=== PATIENT | male | born 1960 | race Caucasian/White ===

== ENCOUNTER → 2024-03-08 18:30 | Outpatient (REF) | payer MEDICARE, SELFPAY | LOC: PAVMRI 18:30 | PROVIDERS: ATTENDING PHYSICIAN Student in an Organized Health Care Education/Training Program; FAMILY PHYSICIAN Family Medicine; REFERRING PHYSICIAN Orthopaedic Surgery Orthopaedic Surgery of the Spine | DX: M25.559 Pain in unspecified hip (principal) | CPT/HCPCS: 72148 ==

== ENCOUNTER 2024-05-10 08:50 | Inpatient (IN) | payer MEDICARE, SELFPAY ==
--- NOTE | 2024-04-27 09:31 | CM ---
Patient is scheduled for lumbar spine surgery on 05/10/24. Spoke with patient prior to surgery via telephone. Introduced role of the Orthopedic Navigator. Patient reports that he lives with his in a two story home. There are seven steps to enter
and a flight of steps to the second floor. There is a powder room on the first floor. He currently functions independently. He has no DME and has never had VN services. PCP is Jeanmarie Tracy.
Discussed orthopedic program, post surgical plans and tentative plan for patient to return home when directed by surgeon. Patient is in agreement with tentative plan and will have support from his when he goes home.
Plan: Orthopedic Navigator will remain available to assist with the care of patient and will reassess discharge needs after surgery.
[2024-04-28 09:39] VITALS: BMI 31.2
[2024-04-28 09:58] LABS: Hematocrit 43.1 % (39.0-52.0); Mean Corp Hgb Conc. 34.8 g/dL (33.0-37.0); Mean Corpuscular Hgb 29.9 pg (27.0-31.0); Mean Corpuscular Volume 85.9 fL (80.0-94.0); Mean Platelet Volume 9.9 fL (7.4-10.4); Platelet Count 263 10^3/uL (130-400); Red Blood Cell Count 5.02 10^6/uL (4.70-6.10); Red Cell Dist. Width 12.7 % (11.5-14.5); White Blood Cell Count 6.7 10^3/uL (4.8-10.8)
[2024-04-28 10:22] LABS: ALT (SGPT) 40 U/L (0-50); AST (SGOT) 28 U/L (17-59); Albumin 5.1 g/dl (3.5-5.0); Alkaline Phosphatase 51 U/L (38-126); Blood Urea Nitrogen 21 mg/dl (9-20); Calcium 9.9 mg/dl (8.4-10.2); Carbon Dioxide 24 mmol/L (22-30); Chloride 105 mmol/L (98-107); Estimated Creatinine Clearance 89 ml/min; Glucose 123 mg/dl (70-99); Potassium 4.5 mmol/L (3.5-5.1); Sodium 139 mmol/L (135-145); Total Bilirubin 0.9 mg/dl (0.2-1.3); eGFR > 60.00
[2024-05-10] VITALS (18 sets, daily range): BP systolic 70–171; BP diastolic 70–115; PULSE 88; O2SAT 94; BMI 30.7; BMI 31.2
[2024-05-10] MEDS: LYRICA 150 MG PO (09:13)
[2024-05-10] MEDS: SKELAXIN 800 MG PO ×2 (09:13→14:54)
[2024-05-10] MEDS: TYLENOL 1000 MG PO ×3 (09:13→22:45)
[2024-05-10] MEDS: CELEBREX 200 MG PO (09:14)
[2024-05-10] MEDS: VANCOCIN 300 MG IV (09:16)
[2024-05-10] MEDS: VANCOCIN 300 ML IV (09:16)
[2024-05-10 09:17] LABS: Glucose - Point of Care 139 mg/dl (70-99)
[2024-05-10] MEDS: NORMOSOL-R 1000 IV ×2 (09:17→14:46)
[2024-05-10] MEDS: DILAUDID 0.5 MG IV (13:06)
[2024-05-10] MEDS: ULTRAM 50 MG PO ×4 (14:54→22:45)
[2024-05-10] MEDS: CRESTOR PO (15:00)
[2024-05-10] MEDS: CRESTOR 20 MG PO (15:00)
[2024-05-10] MEDS: COMPAZINE 5 MG IV (15:37)
[2024-05-10] MEDS: ANCEF 5 IV (18:25)
[2024-05-10] MEDS: COLACE 100 MG PO (19:54)
[2024-05-10] MEDS: SENOKOT 17.2 MG PO (19:54)
[2024-05-10] MEDS: LYRICA 75 MG PO (19:54)
[2024-05-11] MEDS: NORMOSOL-R 1000 IV (00:41)
[2024-05-11] MEDS: ANCEF 5 IV (02:40)
[2024-05-11] MEDS: ULTRAM 50 MG PO ×2 (02:40→06:24)
[2024-05-11 03:40] VITALS: BP 128/69
[2024-05-11] MEDS: TYLENOL 1000 MG PO ×2 (05:05→09:00)
[2024-05-11 06:52] LABS: Blood Urea Nitrogen 18 mg/dl (9-20); Calcium 8.3 mg/dl (8.4-10.2); Carbon Dioxide 23 mmol/L (22-30); Chloride 104 mmol/L (98-107); Estimated Creatinine Clearance 111 ml/min; Glucose 160 mg/dl (70-99); Potassium 4.1 mmol/L (3.5-5.1); Sodium 136 mmol/L (135-145); eGFR > 60.00
[2024-05-11 07:35] VITALS: BP 135/73
--- NOTE | 2024-05-11 07:57 | W.DS.TRANS ---
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
-
Discharge Instructions:
Sleep Apnea Risk Intermediate
Instructions:
Stand-Alone Forms: [facility].
Changes to Home Medications: No
Discharge Medications:
DC Medications w/original date entered in [facility]
benazepril 20 mg tablet 40 mg PO DAILY Blood Pressure 12/06/19
acetaminophen 650 mg tablet,extended release 1,300 mg PO BID Pain 05/03/24
amlodipine 5 mg tablet 5 mg PO HS Blood Pressure 05/03/24
meloxicam 15 mg tablet 15 mg PO DAILY 05/03/24
rosuvastatin 20 mg tablet 20 mg PO DAILY High Cholesterol 05/03/24
aspirin 81 mg tablet,delayed release 81 mg PO DAILY Blood Clot Prevention/Tx 05/11/24
Home Medication Changes
Pending Results: No
--- NOTE | 2024-05-11 07:57 | W.PN.SP ---
Addendum entered and electronically signed by Jose Dickinson MD 05/11/24 08:00:
PLease disregard note
Original Note:
Today's Communication / Plan
-
s/p lami fusion
PT
May need wright to go home with
Subjective / Objective
Subjective Data
Overall doing ok. Denies weakness.
Chronic pain issues
Trouble voiding likely secondary to that.
Objective Data
Vital Signs
Temp Pulse Resp BP Pulse Ox
97.7 F 73 18 128/69 94
05/11/24 03:40 05/11/24 03:40 05/11/24 03:40 05/11/24 03:40 05/11/24 03:40
Intake and Output
05/10/24 05/11/24 05/12/24
06:59 06:59 06:59
Intake Total 200 / 200
Output Total 210 / 210
Balance -10 / -10
Intake:
IV fluids (Total) 200 / 200
Normosal 200 / 200
Output:
Drain Output (Total) 210 / 210
Right Lower Breast Hemovac 210 / 210
Other:
Number of approximated LARGE 2
amounts of urine
Lab Data
05/11/24 05:02
05/11/24 05:02
Physical Exam
-
Both LE stable strength. Dimisnisehed by pain
--- NOTE | 2024-05-11 07:59 | W.PN.SP ---
Today's Communication / Plan
-
s/p lami fusion
PT
D/c
Subjective / Objective
Subjective Data
Please disregard previous note
PT dong well
LEgs better
Denies weakness
Objective Data
Vital Signs
Temp Pulse Resp BP Pulse Ox
97.7 F 73 18 128/69 94
05/11/24 03:40 05/11/24 03:40 05/11/24 03:40 05/11/24 03:40 05/11/24 03:40
Intake and Output
05/10/24 05/11/24 05/12/24
06:59 06:59 06:59
Intake Total 200 / 200
Output Total 210 / 210
Balance -10
Intake:
IV fluids (Total) 200 / 200
Normosal 200 / 200
Output:
Drain Output (Total) 210 / 210
Right Lower Breast Hemovac 210 / 210
Other:
Number of approximated LARGE 2
amounts of urine
Lab Data
05/11/24 05:02
05/11/24 05:02
Physical Exam
-
No focal deficits
[2024-05-11] MEDS: LYRICA 75 MG PO (08:57)
[2024-05-11] MEDS: COLACE 100 MG PO (08:58)
[2024-05-11] MEDS: SENOKOT 17.2 MG PO (08:58)
[2024-05-11] MEDS: ZESTRIL 40 MG PO (08:58)
[2024-05-11] MEDS: CRESTOR 20 MG PO (08:58)
[2024-05-11] MEDS: ULTRAM PO (09:03)
[2024-05-11 09:06] VITALS: BP 138/71; PULSE 76
--- NOTE | 2024-05-11 09:27 | CM ---
Addendum entered by Eli Matthews 05/11/24 11:39:
Patient did well with therapy. No discharge planning needs identified.
Original Note:
Reviewed chart and held rounds with PT, OT and RN. Patient had planned lumbar spine surgery with Dr. Dickinson on 05/10. Met with patient at bedside. Confirmed information previously obtained for assessment and discussed discharge plans. Patient continues
to plan to return home at discharge. He will have support from his when he goes home. Reviewed that he will work with PT/OT this morning and that discharge needs will depend on his functional status. However, no needs currently identified.
Patient has access to any DME he may need but has none of his own.
Patient will use [facility] for discharge prescriptions.
[2024-05-11 11:15] VITALS: BP 149/73
[2024-05-11 11:19] VITALS: BP 131/64; PULSE 65; O2SAT 96
[2024-05-11] MEDS: NORMOSOL-R IV (11:23)
--- NOTE | 2024-05-11 12:40 | W.PN.ORTHO ---
Today's Communication / Plan
-
d/c
Assessment
.
Distal Motor Intact: Yes
Dressing:
Clean, dry and intact.
Assessment:
Hx TIAs-continue statin, asa to be resumed POD#5, maintain good BP control
Plan
.
Surgery / Date: L3-4-5 leida-lami psf w/ inst Dr. Dickinson 05/10/24
Activity:
Out of bed.
PT/OT
Discharge Plan: Home
Subjective
.
.:
Patient resting comfortably.
Vital Signs and Labs
.
Vital Signs and Labs:
Lab Results
05/11/24 05:02
05/11/24 05:02
Temp Pulse Resp BP Pulse Ox
98.0 F 70 18 149/73 95
05/11/24 11:15 05/11/24 11:15 05/11/24 11:15 05/11/24 11:15 05/11/24 11:15
Physical Exam
-
HEENT: No pallor, cyanosis, or jaundice. Throat clear.
NECK: Supple. No JVD.
RESPIRATORY: Lungs clear to auscultation.
CVS: S1, S2 normal. RRR.� No murmur, rub or gallop.
ABDOMEN: Soft, non-tender. No distension. BS+/normal.
EXTREMITIES: strength equal, no calf pain with palpation
HEADHUNTER: AOx3. No focal deficits. certified medical transcriptionist grossly intact
--- NOTE | 2024-05-11 12:46 | W.DS.TRANS ---
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
-
Discharge Instructions:
Sleep Apnea Risk Intermediate
Discharge Diagnosis/Procedures L3-4-5 leida-lami psf w/ inst Dr. Dickinson 05/10/24
Diet As tolerated
Activity No strenuous activity
Driving Restrictions No driving
Instructions:
Stand-Alone Forms: [facility]
Changes to Home Medications: Yes
Discharge Medications:
DC Medications w/original date entered in [facility]
benazepril 20 mg tablet 40 mg PO DAILY Blood Pressure 12/06/19
acetaminophen 650 mg tablet,extended release 1,300 mg PO BID Pain 05/03/24
amlodipine 5 mg tablet 5 mg PO HS Blood Pressure 05/03/24
rosuvastatin 20 mg tablet 20 mg PO DAILY High Cholesterol 05/03/24
Saccharomyces boulardii 250 mg capsule (Florastor) 250 mg PO BID #1 cap 05/11/24
aspirin 81 mg tablet,delayed release 81 mg PO DAILY Blood Clot Prevention/Tx 05/11/24
cephalexin 500 mg capsule 500 mg PO QID infection prevention #20 caps 05/11/24
dexamethasone 4 mg tablet 4 mg PO BID inflammation #6 tabs 05/11/24
docusate sodium 100 mg capsule (Colace) 100 mg PO BID stool softner #1 cap 05/11/24
gabapentin 300 mg capsule 300 mg PO HS sleep/pain #10 caps 05/11/24
magnesium hydroxide 400 mg/5 mL oral suspension (Milk of Magnesia) 30 ml PO HS PRN Constipation #1 mL 05/11/24
oxycodone 5 mg tablet 5 mg PO Q6H PRN 1 tab moderate pain, 2 tabs severe pain #30 tabs 05/11/24
sennosides 8.6 mg tablet (Senokot) 17.2 mg (2 x 8.6 mg) PO BID laxative #2 tabs 05/11/24
Home Medication Changes
aspirin 81 mg tablet,delayed release 81 mg PO DAILY Blood Clot Prevention/Tx 05/11/24 -hold
cephalexin 500 mg capsule 500 mg PO QID infection prevention #20 caps 05/11/24
dexamethasone 4 mg tablet 4 mg PO BID inflammation #6 tabs 05/11/24
gabapentin 300 mg capsule 300 mg PO HS sleep/pain #10 caps 05/11/24
oxycodone 5 mg tablet 5 mg PO Q6H PRN 1 tab moderate pain, 2 tabs severe pain #30 tabs 05/11/24
Pending Results: No
== END 2024-05-11 14:49 | disposition home or self-care (01) | DRG 460 ==
LOC: 2 SOUTH 08:50
PROVIDERS: Physician Assistant Medical; ADMITTING PHYSICIAN Orthopaedic Surgery Orthopaedic Surgery of the Spine; FAMILY PHYSICIAN Family Medicine
PROC: 00NY0ZZ Release Lumbar Spinal Cord, Open Approach (ICD-10-PCS; 2024-05-10)
PROC: 0SG00K1 Fusion of Lumbar Vertebral Joint with Nonautologous Tissue Substitute, Posterior Approach, Posterior Column, Open Approach (ICD-10-PCS; 2024-05-10)
DX: M48.061 Spinal stenosis, lumbar region without neurogenic claudication (principal); M43.16 Spondylolisthesis, lumbar region; I10 Essential (primary) hypertension; I25.10 Atherosclerotic heart disease of native coronary artery without angina pectoris; E78.2 Mixed hyperlipidemia; I51.7 Cardiomegaly; Z86.73 Personal history of transient ischemic attack (TIA), and cerebral infarction without residual deficits; Z79.82 Long term (current) use of aspirin
CPT/HCPCS: 36415; 72100; 76000; 80048; 80053; 82962; 85014; 85018; 85027; 86850; 86900; 86901; 87070; 97116; 97162; 97166; 97530; 97535

== ENCOUNTER → 2025-02-05 08:35 | Outpatient (REF) | payer MEDICARE, SELFPAY ==
--- NOTE | 2025-01-29 08:53 | PN.DIAED02 ---
Addendum entered by Carol Bird RN 01/29/25 11:07:
Depression score: 0
Addendum entered by Carol Bird RN 01/29/25 09:21:
Mr. Do also reports taking OTC supplements of CoQ10 1 tablet QD and Ashgwanda Root 1 tablet QD.
Original Note:
Referral
DSME Class Series Code: [id number]
Referred For: Diabetes Self-Management Training, Medical Nutrition Therapy, Self-Blood Glucose Monitoring, Long-Term Complication Instruction, Accute Complication Instruction, Continuous Glucose Monitoring, Medication management, Insulin
Instruction, Care Coordination, Disease Management
PHI Release Authorization Form Signed: Yes
Demographic
(1) Type 2 diabetes mellitus without complications
Status: Chronic Code(s): E11.9 - Type 2 diabetes mellitus without complications
Patient's primary language-: Sudanese
Education: College degree
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
Shift: Day
- Social
Primary Support Person: Self
Primary Care Takers: Self
Living Arrangements: Self & spouse
- Learning Methods
Preferred Method: Reading, Lecture/audio, Hands-on demonstration, Video, Group discussion
Barriers to Learning: None
Glycemic Control
- Blood Glucose Monitoring Assessment
Date: 01/17/25 (139)
Blood glucose monitoring at home: Yes
Monitor Brands: Other (Assure)
Frequency: occasionally
- Hyperglycemia Assessment
Experiences Hyperglycemia: Yes (frequent urination)
Frequency: 1-3x per week
- Hypoglycemia Assessment
Patient experiences hypoglycemia: No
- Blood Glucose Monitoring Results
Source: lab (139 fasting)
- Hemoglobin A1c
Date: 09/20/24
A1C Percentage (%): 6.8
Medical History of Diabetes
Family Diabetes History: Grandfather
Previous Diabetes Education: No
Previous visit with Dietitian: No
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
Measures
- Anthropometrics
Height: 5 ft 11 in
Actual Weight: 230 lb 12.8 oz
- Blood Pressure / Pulse
Blood pressure: 138/79
Pulse: 66
- Diabetes Management
Medical Management for Diabetes: Complete physical exam (09/24/2024), Dental exam (01/09/2025), Other (Covid vax 11/28/2020, 01/07/2021)
Self-Care
- Tobacco Usage
Do you now, or have you ever smoked?: Never smoked
- Alcohol & Drugs Usage
Drinks Alcohol: Yes (beer)
Amount/day: Social Occasions
- Meals & Dining
Meals & Dining: Patient skips meals: No, Food Intolerance / Allergy: Yes (chicken, turkey, pork), Cultural / Congregational Dietary Needs: No
Primary Food Seed Cone Picker: Self
Primary Rag Willow Operator: Self
Dining Out Frequency: Other (once a month)
- Physical Activity
Physical Limitation: No
Patient participates in physical Activity: Yes
Activity Types: walking
Duration: 21-30 minutes
Frequency: 3-5x per week
- Patient-Self Assessment
Diabetes Knowledge: Fair
Feelings About Diabetes: Denial
General Health: Good
Importance of Health: Extremely
Stress Level: High
Diabetes Interferes With:: Nothing
Barriers to Diabetes Management: Nothing
- Diabetes Identification
Carries Diabetes Identification: No
Diabetes Identification Information Provided: Yes
Care Plan
- Education Needs
Patient Education Needs: Diabetes disease process, Chronic complications, Acute complications, Medication, Monitoring, Physical activity, Psychosocial Adjustment, Nutritional management, Goal setting & problem solving
Recommended Diabetes Training Program based on assessment: Outpatient Diabetes Education Program
- Plan of Care
Plan of Care:
01/29/2025 DIABETES EDUCATION
I met with Alonso and his for initial meeting prior to DSME class, he was diagnosed with T2D 09/2024. He has a glucometer, test strips and lancets, obtains through work at a [employer], he declined glucometer sample but will contact us if he
needs supplies. I educated him to contact insurer to determine preferred brand of supplies. He checks his glucose occasionally.
I educated on pathophysiology of T2D vs. T1D. I provided education on meaning of HbA1c, signs and symptoms of hypoglycemia and hyperglycemia, complications, and BS goals. Has frequent urination at night. I educated on hypoglycemia protocol,
importance of proper foot care and eye exams, as he had an eye stroke in the past.
Recommended he SMGB once daily for 1-2 weeks, including preprandial AM and 2 hours post prandial with different meals and also documenting meal choices. Suggested he review with diabetes team and PCP in the future.
He is taking OTC supplements D3 + K2 1 tablet QD, Berberine 2 tablets daily, Tumeric 3 tablets daily. He discontinued Metformin in the past, but has just started taking again at 500 mg QD at night. I educated on supplementation of B12, since
Metformin can deplete this. I educated on Metformin mechanism of action and potential side effects. He denies any side effects.
Asked patient to contact health insurer to discuss coverage and fees for DMSE class accredited by ADA, he verbalized understanding. Encouraged him to contact office before class with any concerns.
--- NOTE | 2025-01-29 09:22 | PN.DIAED04 ---
Education Record
- Education Record
Class Attended: Other (DSME INITIAL MEETING)
DSME Class Series Code: [id number]
Instructor: Nurse Practitioner (JORDAN Silva)
Pre-Program Knowledge: Needs review / Assistance
Pre-Test Score (%): 59
Goals
- Goal 1
Being Active: Exercise 30 minutes-5 times per week
Goals To Be Evaluated: Exercise 30 mins-5x/week
- Goal 2
Healthy Eating: Make better food choices (REDUCE PORTION SIZES, WAS RECOMMENDED TO FOLLOW DASH DIET)
Goals To Be Evaluated: Make better food choices
- Goal 3
Monitoring: Follow monitoring schedule
Goals To Be Evaluated: Follow monitoring times
--- NOTE | 2025-02-06 10:23 | PN.DIAED14 ---
This is to notify you that your patient with diabetes, DAMON MARQUEZ ( 1960), has enrolled in our diabetes self-management classes that are being held at [facility].
These classes will include an introduction to diabetes, diet, medication, exercise and prevention of complications. At the end of our class series, you will receive a report of your patient's participation and progress for your records.
Please contact me at the Diabetes Center, , if there is any particular information regarding your patient that might be helpful to me.
Sincerely,
Alec ORTEGA-DEEPAK,[facility]
--- NOTE | 2025-02-06 10:23 | PN.DIAED04 ---
Education Record
- Education Record
Class Attended: Class 1
DSME Class Series Code: [id number]
Instructor: Registered Nurse (Kacy Baugh RN)
Class Curriculum:
Outpatient Diabetes Education Program:
Class 1 (120 minutes)
Describe the diabetes disease process and treatment options
Diabetes management
Develop personal strategies to promote health and behavior change
Integrate psychosocial adjustment for daily living
Monitor blood glucose and other parameters. Interpret and use the results for self-management decision making
Prevent, detect, and treat acute complications
Class Length (mins): 120
Post-Class 1 Test Score (%): 88
--- NOTE | 2025-02-08 09:22 | PN.DIAED06 ---
Meal Plans - Regular
- Meal Plan
Diabetic Meal Plan Name: 2000 calories
Breakfast - Total Carbohydrate (grams): 45
Breakfast - Starch Carbohydrate: 0
Breakfast - Fruit Carbohydrate: 0
Breakfast - Milk Carbohydrate: 0
Breakfast - Nonstarchy Vegetables: Yes
Breakfast - Meat/Protein: 1
Breakfast - Fat: 2
Morning Snack - Total Carbohydrate (grams): 30
Morning Snack - Starch Carbohydrate: 0
Morning Snack - Fruit Carbohydrate: 0
Morning Snack - Milk Carbohydrate: 0
Morning Snack - Nonstarchy Vegetables: Yes
Morning Snack - Meat/Protein: 0.5
Morning Snack - Fat: 0
Lunch - Total Carbohydrate (grams): 45
Lunch - Starch Carbohydrate: 0
Lunch - Fruit Carbohydrate: 0
Lunch - Milk Carbohydrate: 0
Lunch - Nonstarchy Vegetables: Yes
Lunch - Meat/Protein: 3
Lunch - Fat: 1
Afternoon Snack - Total Carbohydrate (grams): 30
Afternoon Snack - Starch Carbohydrate: 0
Afternoon Snack - Fruit Carbohydrate: 0
Afternoon Snack - Milk Carbohydrate: 0
Afternoon Snack - Nonstarchy Vegetables: Yes
Afternoon Snack - Meat/Protein: 0.5
Afternoon Snack - Fat: 0
Dinner - Total Carbohydrate (grams): 45
Dinner - Starch Carbohydrate: 0
Dinner - Fruit Carbohydrate: 0
Dinner - Milk Carbohydrate: 0
Dinner - Nonstarchy Vegetables: Yes
Dinner - Meat/Protein: 4
Dinner - Fat: 2
Evening Snack - Total Carbohydrate (grams): 15
Evening Snack - Starch Carbohydrate: 0
Evening Snack - Fruit Carbohydrate: 0
Evening Snack - Milk Carbohydrate: 0
Evening Snack - Nonstarchy Vegetables: Yes
Evening Snack - Meat/Protein: 0
Evening Snack - Fat: 0
== END ==
LOC: DES 08:35
PROVIDERS: ATTENDING PHYSICIAN Family Medicine
DX: E11.9 Type 2 diabetes mellitus without complications (principal)
CPT/HCPCS: 99078

== ENCOUNTER → 2025-02-12 08:31 | Outpatient (REF) | payer MEDICARE, SELFPAY ==
--- NOTE | 2025-02-13 10:04 | PN.DIAED04 ---
Education Record
- Education Record
Class Attended: Class 2
DSME Class Series Code: [id number]
Instructor: Registered Dietitian (Kelsey Zamarripa, RD, LDN, CDE)
Class Curriculum:
Outpatient Diabetes Education Program:
Class 2 (120 minutes)
Incorporate nutritional management into lifestyle
Understanding nutritional value
Understanding carbohydrate counting
Class Length (mins): 120
== END ==
LOC: DES 08:31
PROVIDERS: ATTENDING PHYSICIAN Family Medicine
DX: E11.9 Type 2 diabetes mellitus without complications (principal)
CPT/HCPCS: 99078

== ENCOUNTER → 2025-02-19 08:14 | Outpatient (REF) | payer MEDICARE, SELFPAY | LOC: DES 08:14 | PROVIDERS: ATTENDING PHYSICIAN Family Medicine | DX: E11.9 Type 2 diabetes mellitus without complications (principal) | CPT/HCPCS: 99078 ==

== ENCOUNTER → 2025-02-26 10:50 | Outpatient (REF) | payer MEDICARE, SELFPAY | LOC: DES 10:50 | PROVIDERS: ATTENDING PHYSICIAN Family Medicine | DX: E11.9 Type 2 diabetes mellitus without complications (principal) | CPT/HCPCS: 99078 ==

== ENCOUNTER 2025-05-07 15:58 | Observation (INO) | payer MEDICARE, SELFPAY ==
[2025-05-07] VITALS (9 sets, daily range): BP systolic 118–150; BP diastolic 70–85; BMI 31.1; BMI 30.7
[2025-05-07 11:53] LABS: Glucose - Point of Care 104 mg/dl (70-99)
[2025-05-07 12:10] LABS: Hematocrit 44.9 % (39.0-52.0); Hemoglobin 15.2 g/dL (13.0-18.0); Mean Corp Hgb Conc. 33.9 g/dL (33.0-37.0); Mean Corpuscular Volume 87.5 fL (80.0-94.0); Nucleated Red Blood Cells % 0 % (-); Platelet Count 205 10^3/uL (130-400); Red Cell Dist. Width 13.3 % (11.5-14.5)
[2025-05-07 12:28] LABS: ALT (SGPT) 23 U/L (0-50); AST (SGOT) 23 U/L (17-59); Albumin 4.9 g/dl (3.5-5.0); Alkaline Phosphatase 48 U/L (38-126); Blood Urea Nitrogen 24 mg/dl (9-20); Calcium 9.3 mg/dl (8.4-10.2); Carbon Dioxide 20 mmol/L (22-30); Chloride 109 mmol/L (98-107); Glucose 109 mg/dl (70-99); Potassium 4.7 mmol/L (3.5-5.1); Sodium 137 mmol/L (135-145); Total Protein 7.5 g/dl (6.3-8.2); eGFR > 60.00
--- NOTE | 2025-05-07 14:12 | ED.GENMED ---
History of Present Illness
General
Chief Complaint: Visual Problem
Time Seen by Provider: 05/07/25 13:51
Nursing documentation reviewed up to this point in time: agreed with
History of Present Illness
History of Present Illness:
64-year-old male presents the ER for evaluation of cloudy vision in his right eye which has noted since waking this morning. He felt as though it might been related to his contact lens so took one of his lenses out and took a shower. He prepared
for his workday as per usual. He did experience some paresthesias to his bilateral upper extremities at time of awakening which seem to resolve while he was getting ready for work. He did not have any weakness in his arms or legs. No difficulty
with speech or swallowing. No loss of vision, just a feeling that there is a cloud over his vision. He states that he had similar symptoms 5 years ago when he was admitted to the hospital for stroke evaluation. He states that the issue ultimately
ended up being related to stroke in his eye. He attempted to call the eye office today but was unable to be seen prompting visit to the ER. He states that he was taken off of his statin 6 weeks ago due to leg cramps. He states at that time he
reinitiated taking daily aspirin. He does have a prior history of diabetes also. He states that the vision has improved only minimally since awakening.
If applicable-neuro sx onset
Date of onset of symptoms: 05/07/25
Date last time pt seen normal: 05/06/25
Past History
Past History
ED Past Medical History: HTN and Hypercholesterolemia
ED Past Surgical History: Orthopedic (Knee surgery) and Other (Umbilical hernia repair)
Social History
Tobacco: Non-smoker
Alcohol: Occasional
Personal:
Living: with family
Employment: Employed
Family History
Family History: Hypertension and CAD; Negative Diabetes, Early CAD or Sudden
Phy Exam
Physical Exam
Physical Exam:
Patient is awake, alert, appears in no acute distress, head is normocephalic atraumatic, PERRL, EOMI, no facial asymmetry noted on motor movement, tongue is midline, mucous membranes moist, sclera anicteric, no carotid bruits, no JVD, heart regular
rate and rhythm not murmurs or ectopy, lungs are clear to auscultation without wheezes rales or rhonchi, abdomen is soft and nontender, extremities without edema, 2+ DP pulses present symmetric bilateral feet, no visual field deficit noted on
testing, NIH stroke scale 0, no dysdiadochokinesia, no ataxia, no pronator drift
Course
Orders/Labs/Results
Orders:
Orders
05/07/25 11:56
Cardiovascular Evaluation Urgent
Comment: ADD ON
Complete Blood Count/With Diff Urgent
Comprehensive Metabolic Panel Urgent
Erythrocyte Sed Rate Urgent
Comment: ADD ON
Glycohemoglobin (HgbA1c) Urgent
05/07/25 11:59
CT Head W/o Iv Contrast Urgent
Comment:
Reason For Exam: visual change
05/07/25 14:32
0.9% Sodium Chloride 500 ml [Nss] 500 ml IV BOLUS
05/07/25 14:56
Add On- LAB Routine
Tests Added?: ESR
05/07/25 14:59
Consult Neurology [NEUROLOGY CONSULT] Urgent
Consulting Provider: Mary Jane Caputo
Was physician already notified: Yes
Reason for consult: stroke symptoms
05/07/25 15:00
MR Brain Without Contrast Routine
Comment:
Reason For Exam: right eye blurriness
Recent pill cam endoscopy?: No
05/07/25 15:02
CT Head & Neck Angio W/wo IV Routine
Comment:
Reason For Exam: right eye blurriness
05/07/25 15:03
NIH Stroke Scale As Directed
Neurological Checks As Directed
Frequency: Per unit guidelines
05/07/25 15:06
Add On- LAB Routine
Tests Added?: lipid panel, hgb a1c
05/07/25 15:46
Admit/Transfer Patient As Directed
Co-Sign Provider:
Level of Care: Observation services
Assign to:: Telemetry
Physician / Group: kaleb fan
Diagnosis: CVA
Reason for Telemetry: CVA/TIA
Date to Stop Telemetry: 05/10/25
Time to Stop Telemetry: 11:00
PRN Pain Medication Management As Directed
May give lesser potent ordered pain med per pt: Yes
preference::
Protocol:: Medication orders for pain may be administered in a
manner that supports deferring to patient preference
when the pt is:
- Requesting an ordered lesser potent pain medication.
Least to most potent pain medications are defined
as: acetaminophen < NSAID < tramadol < opioids
(morphine, oxycodone, hydromorphone).
- Requesting a lesser dose of the same medication IF
ORDERED.
- Requesting a less intrusive route of administration
if both routes are prescribed by the provider (PO <
IV).
05/07/25 15:47
Code Status As Directed
Resuscitation Status: Full Code
05/07/25 16:00
Clopidogrel Bisulfate [Plavix] 75 mg PO DAILY
05/07/25 22:00
Ezetimibe [Zetia] 10 mg PO HS
05/10/25 11:00
DC Protocol for Telemetry ONCE
Abnormal Lab Results
05/07/25 05/07/25
11:52 11:56
Chloride 109 H mmol/L
(98-107)
Carbon Dioxide 20 L mmol/L
(22-30)
BUN 24 H mg/dl
(9-20)
Glucose 109 H mg/dl
(70-99)
Total Cholesterol 240 H mg/dl
(50-199)
POC Glucose 104 H mg/dl
(70-99)
05/07/25 11:56
05/07/25 11:56
CBC within normal limits. Mild elevation of BUN with preserved creatinine. CT head negative
Vital Signs
Initial and Last Documented VS:
Initial Vital Signs
Temp Pulse Resp BP Pulse Ox
97.3 F 65 16 150/85 16
05/07/25 11:46 05/07/25 11:46 05/07/25 11:46 05/07/25 11:46 05/07/25 11:46
Last Documented Vital Signs
Temp Pulse Resp BP Pulse Ox
97.3 F 65 16 150/85 96
05/07/25 11:46 05/07/25 11:46 05/07/25 11:46 05/07/25 11:46 05/07/25 14:14
MDM/Problems Addressed
Differential Diagnosis Includes:
Differential diagnosis considered but not limited to dehydration, lecture light dyscrasia, CVA, intracranial mass, intracranial hemorrhage along with other etiologies considered
Chronic conditions affecting care:
Diabetes, prior TIA
*Radiology
Radiology exam reviewed: radiology read reviewed (CT head negative)
*Pulse Oximetry
SaO2: 96
Oxygen Mode of Delivery: Room air
Patient hypoxic: no
*Critical Care Note
Total Time (30-74mins, 75-104mins- exclusive of procedures): Not Applicable
Update Note
Update Note:
Once results available, I reached out to neurology for consultation. They evaluated the patient and would recommend further inpatient evaluation clued an MRI. I reached out to hospitalist team for admission. IV fluids ordered. Patient takes
aspirin daily. Patient is not a thrombolytic candidate as symptoms have been present for more than 3 hours
ED Attending Note
-
Portions of this chart may have been created with voice recognition software.� Occasional wrong word or��sound alike� substitutions may have occurred due to the inherent limitations of voice recognition software.
Discharge Plan
Departure
Patient Disposition: Admit
Date of Disposition: 05/07/25
Time of Disposition: 15:34
Admit to: Telemetry
Presentation/result/management discussed w/ accepting MD/DO: Hospitalist
Discharge Problem:
Blurred vision
Prescriptions:
No Action
metformin 500 mg Tablet
500 mg PO QPM
aspirin 81 mg Tablet,Delayed Release (Dr/Ec)
81 mg PO DAILY
benazepril 40 mg Tablet
40 mg PO DAILY
vitamin E 268 mg (400 unit) Capsule
268 mg PO DAILY
cholecalciferol (vitamin D3) [Vitamin D3] 25 mcg (1,000 unit) Tablet
25 mcg PO DAILY
glycine 500 mg Capsule
500 mg PO DAILY
omega 9-gcj-aml-fish oil [Fish Oil] 1,000 (120-180) mg Capsule
1 cap PO DAILY
coQ10 (ubiquinol) 100 mg Capsule
100 mg PO DAILY
turmeric 400 mg Capsule
400 mg PO DAILY
vitamin D3-vitamin K2 125-90 mcg Capsule
1 cap PO DAILY
ashwagandha extract 120 mg Capsule
120 mg PO DAILY
berberine chloride 500 mg Capsule
500 mg PO DAILY
Super Beets
2 cap PO DAILY
Referrals:
Jeanmarie Tracy MD [Family Provider, Family Practice]
Interventions
Interventions:
*Risk Screen - Suicide Last Done: 05/07/25 11:46
*Neglect/Abuse Screening Last Done: 05/07/25 11:46
Discharge Date and Time
Print Language: LATVIAN
--- NOTE | 2025-05-07 14:43 | CON.NEURO ---
Addendum entered and electronically signed by Liban Townsend MD 05/07/25 17:11:
Studies reviewed.
I have personally examined the patient. I reviewed and agree with the LOCOMOTIVE OILER's Note.
My addenda:
Awake, alert, interactive. No acute distress.
Speech intact.
Follows 2-step requests w/o difficulty. No tremor.
Extra-ocular movements grossly intact.
Facial movements full and symmetric. Hearing intact to normal conversational volume.
Normal UE movements bilaterally.
Neck: full ROM.
Chest: no dyspnea
Heart: no JVD
Ext: (-) Clubbing, (-) Cyanosis, (-) Edema
IMPRESSIONS/RECOMMENDATIONS:
Abrupt onset of painless visual loss in the right similar but not identical to event in 2019
? Non-arteritic ischemic optic neuropathy
continue ASA
start Clopidogrel 75 mg for 21 days then discontinue
Ophthalmology evaluation
Ezetimibe for cholesterol, follow LDL
D/W patient / family
Will continue to follow patient.
Original Note:
Documented by User: Vickie Brooks NP 05/07/25 16:24
Neuro Assessment/Plan
Assessment
The patient is a right-handed 64-year-old with a past medical history for hypertension, hyperlipidemia, diabetes presented to [facility] on 05/07/2025 with painless blurry vision to right eye.
Head CT 05/07/2025: No acute intracranial abnormality noted.
Brain MRI 12/07/2019:
1. No MRI evidence for acute infarct or intracranial hemorrhage.
2. Mild symmetric bilateral frontal lobe volume loss.
3. Mild paranasal sinus mucosal disease.
Head and neck CTA 12/06/2019:
Patent ophthalmic arteries.
Unremarkable [place] of [place] region.
Widely patent internal carotid arteries.
Unremarkable vertebral basilar system.
Labs: Hgb A1C pending, ESR 2, Cholesterol 240, LDL 166
Plan
Impressions: retinal artery occlusion vs ocular migraine, temporal arteritis less likely given ESR normal
-start clopidogrel 75 mg daily in addition to aspirin 81 mg daily
-check brain MRI
-check CTA head and neck
-visual acuity testing
-check hgb A1C
-current LDL 166 with goal <70 unable to tolerate statins will start ezetimibe 10 mg nightly
-neurochecks and NIHSS per unit guidelines
-education material to be provided
-DVT prophylaxis
-follow up with ophthalmology
All questions encouraged and answered, plan of care discussed with Dr. Townsend, hospitalist, nurse, patient and family
Consultation
Order
Date of Consultation: 05/07/25
Requesting Provider: hospitalist
Reason for Consult: blurry vision to right eye
Subjective/Objective
Subjective Data
Date of Service: May 07, 2025
The patient is a right-handed 64-year-old with a past medical history for hypertension, hyperlipidemia, diabetes presented to [facility] on 05/07/2025 with blurry vision to right eye. This morning he woke up at around 0640 with both arms tingling, put
contacts in and was unable to see. He then took his contacts out but the blurry vision persisted. 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 He decided to come to [facility] ED for evaluation. Had similar symptoms without arm
tingling in December of 2019. Symptoms resolved within the two hours at that time. He states that the issue ultimately ended up being related to stroke in his eye.
Note adapted from neurology consult by Dr. Stearns in 12/2019: '59 year-old male with several vascular risk factors presents for evaluation for sudden onset of visual change in his entire right eye. He had no associated vision changes in his left
eye. No associated headache. No other associated focal neurological abnormalities. He states that he had a 'sudden white screen over his entire right eye' that gradually improved from top to bottom. He states that he currently has blurred vision in
the bottom quarter of his vision in his right eye but that the 'white screen' is now resolved. His neurological exam is otherwise unremarkable. Differentials for his presentation include central retinal artery occlusion, visual aura without
headache. Optic neuropathy/optic neuritis. Alteplase was not given as this event was not clearly consistent with stroke and alteplase is been shown to have limited efficacy when administered for retinal artery occlusion. ESR and CRP are normal in
the patient denies any symptoms consistent with temporal arteritis, making this less likely. He will need an MR I brain with and without contrast to evaluate for stroke and enhancement in the optic nerve. CTA head and neck has been ordered to be
performed in the emergency room. Lab work for common causes of optic neuropathy has also been ordered. He will need the remainder of the stroke workup including echocardiogram. Continue outpatient dosing of Crestor. He has been loaded with aspirin
325 mg in the emergency room and is ordered aspirin 81 mg to be started tomorrow. Blood pressure goal is normotension. Ophthalmology should also see him. Neurology will continue to follow.'
Patient experiences tingling sensations to b/l upper extremities down to fingertips twice a year. Denies symptoms in lower extremities. Denies focal weakness. Stopped taking Crestor 6 weeks ago due to b/l leg cramping which has now resolved.
Currently taking aspirin 81 mg daily. Patient awoke at 2 am and vision was not an issue. Denies headache, dizziness, lightheadedness. Denies nausea or vomiting. Denies bulbar symptoms. Denies balance or gait abnormalities. Continues with painless
blurry vision to right eye only. Currently vision is 85% improved. Head CT with no acute abnormality. NIHSS 0. Not a TNK candidate due to patient being out of window.
Objective Data
Vital Signs
Temp Pulse Resp BP Pulse Ox
97.3 F 65 16 150/85 96
05/07/25 11:46 05/07/25 11:46 05/07/25 11:46 05/07/25 11:46 05/07/25 14:14
Lab Results
05/07/25 11:56
05/07/25 11:56
Sodium 137 mmol/L (135-145) 05/07/25 11:56
Potassium 4.7 mmol/L (3.5-5.1) 05/07/25 11:56
BUN 24 mg/dl (9-20) H 05/07/25 11:56
Glucose 109 mg/dl (70-99) H 05/07/25 11:56
Calcium 9.3 mg/dl (8.4-10.2) 05/07/25 11:56
Patient Allergies
chicken derived Allergy (Verified 05/10/24 08:55)
Itching
CVA Assessment
Onset of Stroke Symptoms
Onset of symptoms known: Yes
Date of onset of symptoms: 05/07/25
Time of onset of symptoms: 06:40
Time pt last seen normal is known: Yes
Date last time pt seen normal: 05/07/25
Time last time pt seen normal: 06:40
NIH Stroke Score
Level of Consciousness: 0 - Alert
LOC Questions: 0-Answers both correctly
LOC Commands: 0-Performs both correctly
Best Horizontal Gaze: 0-Normal
Visual Hinojosa: 0=Normal, no visual loss
Facial Palsy: 0=Normal, symmetrical
Motor - Right Arm: 0=No drift 10 seconds
Motor - Left Arm: 0=No drift 10 seconds
Motor - Right Le-No drift 5 seconds
Motor - Left Le-No drift 5 seconds
Limb Ataxia: 0-Absent
Sensation: 0-Normal
Best Language: 0-No aphasia
Dysarthria: 0-Normal
Extinction and Inattention: 0-No abnormality
NIH Total Score:: 0
Tenecteplase Contraindications
Inclusion and Exclusion criteria reviewed: Yes
Reasons for NON-Tx with Thrombolytics ABSOLUTE Exclusions: Time-out of window
IAT Contraindications: >6 hrs from onset/last seen normal and NIHSS < 6
Modified [place] Score (MRS)
-
Modified Raymond Scale (mRS): No symptoms
Score: 0
Review of Systems
-
History Source: Patient
Constitutional: No Symptoms
EENT: Blurry Vision and Decreased Vision
Respiratory: No Symptoms
Cardiac: No Symptoms
Abdomen/GI: No Symptoms
Genitourinary: No Symptoms
Musculoskeletal: No Symptoms
Skin: No Symptoms
Neuro: No Symptoms
Endocrine: No Symptoms
Hematologic / Lymphatic: No Symptoms
Allergy / Immunology: No Symptoms
Physical Exam
-
General: No Apparent Distress, Comfortable and Appears Stated Age
HEENT: Normocephalic, Atraumatic and Anicteric
Neck: Full Range of Motion
Cardiac: No JVD
GI: Non-distended
Skin: Unremarkable
Extremities: No Clubbing, No Cyanosis and No Edema
Psych: Unremarkable
Extended Neurological Exam
Mood & Affect: Mood Unremarkable
Attention Span & Concentration: Awake, Alert, Interactive and No Difficulty with 2 Step Request
Memory: Unremarkable
Tremor: Hand Tremor Absent and Head Tremor Absent
Involuntary Movement: None
Speech: Quality Unremarkable, Quantity Unremarkable and Rate of Production Unremarkable
Cranial Nerve II: Left Eye: Visual Hinojosa Intact
Cranial Nerve II: Right Eye: Visual Hinojosa Reduced (blurry vision)
Cranial Nerves III, IV, : Extraocular Movement: Extraocular Movement Full in all Directions
Cranial Nerve VII: Facial Symmetry: Normal Facial Symmetry
Cranial Nerve VIII: Hearing: Unremarkable Hearing to Normal Conversational Volume
Muscle Strength, Overall: Full Throughout
Muscle Bulk & Tone: Bulk Unremarkable and Tone Unremarkable
Pronator Drift: No Drift in Upper Extremities and No Drift in Lower Extremities
Deep Tendon Reflexes: Unremarkable Throughout
Coordination: Zoutwu-orxq-nnbhyu Testing Unremarkable, Reaches for Objects without Difficulty and Swmz-Tjqe-Eznp movement abnormal
Data Reviewed
-
CT-A: Ordered
CT Head: Report Reviewed and Image Reviewed
MRI Head: Ordered
Labs: Report Reviewed
Lipid Profile: Report Reviewed
HgbA1C: Pending
Reviewed with: Physician, Nurse, Patient and Family
Old Records: Summarized
Medications
-
Active Medications
Generic Name Dose Route Start Last Admin
Trade Name Freq PRN Reason Stop Dose Admin
Sodium Chloride 500 mls @ 1,000 mls/hr 05/07/25 14:32
Nss IV 05/07/25 15:01
BOLUS ONE
Home Medications
�Medication �Instructions �Recorded
benazepril 20 mg tablet 40 mg PO DAILY Blood Pressure 12/06/19
acetaminophen 650 mg 1,300 mg PO BID Pain 05/03/24
tablet,extended release
amlodipine 5 mg tablet 5 mg PO HS Blood Pressure 05/03/24
rosuvastatin 20 mg tablet 20 mg PO DAILY High Cholesterol 05/03/24
Saccharomyces boulardii 250 mg 250 mg PO BID #1 cap 05/11/24
capsule (Florastor)
aspirin 81 mg tablet,delayed 81 mg PO DAILY Blood Clot 05/11/24
release Prevention/Tx
Held on 05/11/24.
Instructions: Resume on
05/15/24.
cephalexin 500 mg capsule 500 mg PO QID infection 05/11/24
prevention #20 caps
dexamethasone 4 mg tablet 4 mg PO BID inflammation #6 tabs 05/11/24
docusate sodium 100 mg capsule 100 mg PO BID stool softner #1 cap 05/11/24
(Colace)
gabapentin 300 mg capsule 300 mg PO HS sleep/pain #10 caps 05/11/24
magnesium hydroxide 400 mg/5 mL 30 ml PO HS PRN Constipation #1 mL 05/11/24
oral suspension (Milk of Magnesia)
oxycodone 5 mg tablet 5 mg PO Q6H PRN 1 tab moderate 05/11/24
pain, 2 tabs severe pain #30 tabs
sennosides 8.6 mg tablet (Senokot) 17.2 mg (2 x 8.6 mg) PO BID 05/11/24
laxative #2 tabs
Past History
Past History
ED Past Medical History: HTN and Hypercholesterolemia
ED Past Surgical History: Orthopedic (Knee surgery) and Other (Umbilical hernia repair)
Family/Social History
Tobacco: Non-smoker
Alcohol: Occasional
Personal:
Living: with family
Employment: Employed
Family History: Hypertension and CAD; Negative Diabetes, Early CAD or Sudden

Documented by User: Liban Townsend MD 05/07/25 17:06
CVA Assessment
NIH Stroke Score
NIH Total Score:: 0
Modified [place] Score (MRS)
-
Score: 0
--- NOTE | 2025-05-07 15:35 | HPS.HSE ---
Family Physician
-
Family Physician: Jeanmarie Tracy
Chief Complaint
-
left blurry vision
History of Present Illness
64-year-old advise medical history for hypertension, hyperlipidemia, diabetes presented to us with left-sided blurry vision since this morning. He thought his blurry vision was may be due to contact lens. He changes the contact lens, blurry vision
persisted. Patient denied any focal weakness patient denied any headache, dizzy or syncope. Patient denied any chest pain or short of breath. Patient denied any fever, chills, cough, congestion. Patient denies any abdominal pain, nausea,
vomiting or diarrhea. Patient denies dysuria, hematuria.
CT head with no acute findings. Patient received Plavix, Zetia in ER. Admitting for further management
Medical History
Past Medical History
Past Medical History: Reports Other
Additional Past Medical History:
HTN
migraine
eye stroke
Past Surgical History: Reports Other
Additional Past Surgical History:
knee surgery
umbilical hernia repair
Social History
Tobacco: Non-smoker
Alcohol: Occasional
Drug: None
Family History
Family History: Not pertinent
Allergies / Home Medications
Allergies reflects when Allergies were last updated in [facility].
Home Medications with original date entered in [facility]
Allergy/Medication List:
Allergies
Allergy/AdvReac Type Severity Reaction Status Date / Time
chicken derived Allergy Itching Verified 05/10/24 08:55
Home Medications
Super Beets 2 cap PO DAILY 05/07/25
ashwagandha extract 120 mg capsule 120 mg PO DAILY 05/07/25
aspirin 81 mg tablet,delayed release 81 mg PO DAILY 05/07/25
benazepril 40 mg tablet 40 mg PO DAILY 05/07/25
berberine chloride 500 mg capsule 500 mg PO DAILY 05/07/25
cholecalciferol (vitamin D3) 25 mcg (1,000 unit) tablet (Vitamin D3) 25 mcg PO DAILY 05/07/25
coQ10 (ubiquinol) 100 mg capsule 100 mg PO DAILY 05/07/25
glycine 500 mg capsule 500 mg PO DAILY 05/07/25
metformin 500 mg tablet 500 mg PO QPM 05/07/25
omega 3-hrh-wba-fish oil 1,000 mg (120 mg-180 mg) capsule (Fish Oil) 1 cap PO DAILY 05/07/25
turmeric 400 mg capsule 400 mg PO DAILY 05/07/25
vitamin D3 125 mcg (5,000 unit)-vitamin K2 90 mcg capsule 1 cap PO DAILY 05/07/25
vitamin E 268 mg (400 unit) capsule 268 mg PO DAILY 05/07/25
Review of Systems
-
Constitutional: Reports No Symptoms
EENT: Reports No Symptoms
Respiratory: Reports No Symptoms
Cardiac: Reports No Symptoms
Abdomen/GI: Reports No Symptoms
: Reports No Symptoms
Musculoskeletal: Reports No Symptoms
Skin: Reports No Symptoms
Neurological: Reports Other (Blurry vision)
Endocrine: Reports No Symptoms
Hematologic/Lymphatic: Reports No Symptoms
Psych: Reports No Symptoms
Physical Exam
Vital Signs
Vital Signs
Temp Pulse Resp BP Pulse Ox
97.3 F 65 16 150/85 96
05/07/25 11:46 05/07/25 11:46 05/07/25 11:46 05/07/25 11:46 05/07/25 14:14
Physical Exam
General: Well Developed, Well Nourished and No Apparent Distress
HEENT: NormoCephalic, Moist mucous membranes and Atraumatic
Respiratory: Clear
Cardiac: S1/S2 and Regular Rhythm; No Murmur or Rub
GI: Soft, Non Tender, Non Distended and Normal Bowel Sounds; No Organomegaly
Rectal: Deferred by Provider
Musculoskeletal: No Clubbing, No Cyanosis and No Edema
Skin: No Rash
Neuro: AO x 3 and Nonfocal/grossly intact
Psych: Calm
Laboratory Results
-
05/07/25 11:56
05/07/25 11:56
Laboratory Results
Total Bilirubin 1.0 mg/dl (0.2-1.3) 05/07/25 11:56
AST 23 U/L (17-59) 05/07/25 11:56
ALT 23 U/L (0-50) 05/07/25 11:56
Alkaline Phosphatase 48 U/L (38-126) 05/07/25 11:56
Data Reviewed
-
CT Scan: Report Reviewed by me
Lab Data: Labs Reviewed by me
Impression/Plan
-
#r/o acute CVA
-head CT with no acute intracranial abnormality noted
-Stroke protocol
- Obtain MRI
- Plavix and Zetia continued
- Aspirin continued
#hxt of amaurosis fugax
#essential HTN
- Benazepril continued
#HLD
- Zetia continued
# Type 2 diabetes
-Hold metformin
-Sliding scale
-CHO diet
# DVT prophylaxis
-SCDs
# CODE STATUS
-Full code
[2025-05-07 15:40] LABS: HDL Cholesterol 54 mg/dl; LDL Cholesterol, Calculated 166 mg/dl; Very Low Density Lipoprotein 20 mg/dl (0-30)
[2025-05-07] MEDS: NSS 500 IV (15:45)
[2025-05-07] MEDS: PLAVIX 75 MG PO (16:06)
--- NOTE | 2025-05-07 16:11 | W.PN.UPDATE ---
Update Note
Progress Note Update
This note serves as an addendum to the H&P by power and recovery shift engineer TIMMY Gabi HERNANDEZ
HPI
64H Rt hand dominant, non smoker HX T2DM, HTN, HLD, wear corrected vision with contact lens see at ER:
- cloudy vision without transient loss vision in his right eye which has noted since waking this morning. asscaited with paresthesias to bilateral UExs
Recently stopped Rosuvastatin due to muscle cramp 1- 2wees bnih then stoppe muscle cramp
Vital Signs
Temp Pulse Resp BP Pulse Ox
97.3 F 65 16 150/85 96
05/07/25 11:46 05/07/25 11:46 05/07/25 11:46 05/07/25 11:46 05/07/25 14:14
PE
Gen: NAD
HEENT: PERRL, EOMI, no facial asymmetry, no tougur deviation
Neck:no JVD
Lungs: CTA
Cor: RRR
RIBBON INKER: NIH Zero
MS: no edema
Relevant data
Cl 109
CO2 20
BUN 24
Pending A1C
HCT: No acute intracranial abnormality noted.
ASSESSMENT & PLAN
Acute cloudy vision with b/l UEx paresthesia: NEG HCT - for further stroke eval
HX amaurosis fugax
-head CT with no acute intracranial abnormality noted
- Stroke protocol
- to cont. SPACE CONTROLLER ASA
- added Plavix and Zetia in place of SPACE CONTROLLER Rosuvastatin to muscle cramps
- Obtain Brain MRI, H& N CTA
- Neuro consulted
Essential HTN
- on SPACE CONTROLLER Benazepril
HLD
- Recently stopped Rosuvastatin due to muscle cramp 1- 2wees ago then stopped muscle cramp
- Initiated Zetia in place of Rosuvastatin
T2DM
- Hold metformin
- add ISS low
- CH2O diet
DVT Px: SCD
Full Code:
OBS TLM
--- NOTE | 2025-05-07 17:45 | CM ---
CM reviewed chart and met with pt and bedside in ED. Lives with in 2 story home, [address], half bath first floor, BR/full BA second floor.
Independent in ADLs, personal care and ambulation at baseline, still drives, working
No hx VN/SNF
PCP: Jeanmarie Tracy
Pharmacy: [facility] which is near his work
Discharge plan: Anticipate home, CM will continue to follow for discharge planning needs
[2025-05-07 22:21] LABS: Glucose - Point of Care 116 mg/dl (70-99)
[2025-05-07] MEDS: ZETIA 10 MG PO (23:30)
[2025-05-08] VITALS (7 sets, daily range): BP systolic 117–154; BP diastolic 78–89; BMI 30.4
--- NOTE | 2025-05-08 00:43 | PTCARENOTE ---
Rec'd pt as admission from ED. NIH 0. Pt denies any numbness of the lower arm bilaterally and denies any visual disturbances. Pt also denies any pain or discomfort. Oriented to room and reports understanding of care plan at this time. Pt resting
with call schmitt in reach. See MAR and flowchart for full pt care and assessment. Awaiting MRI.
[2025-05-08 05:08] LABS: HDL Cholesterol 49 mg/dl; LDL Cholesterol, Calculated 147 mg/dl; Very Low Density Lipoprotein 17 mg/dl (0-30)
[2025-05-08 06:58] LABS: Glucose - Point of Care 122 mg/dl (70-99)
[2025-05-08 08:25] LABS: Glycohemoglobin (HgbA1c) 5.9 % (4.0-5.6)
--- NOTE | 2025-05-08 08:36 | W.PN.NEURO.1 ---
Addendum entered and electronically signed by Liban Townsend MD 05/08/25 11:15:
Studies reviewed.
I have personally examined the patient. I reviewed and agree with the HEAD HOLDER's Note.
My addenda:
Awake, alert, interactive. No acute distress.
Speech intact.
Follows 2-step requests w/o difficulty. No tremor.
Extra-ocular movements grossly intact.
Facial movements full and symmetric. Hearing intact to normal conversational volume.
Normal UE movements bilaterally.
Neck: full ROM.
Chest: no dyspnea
Heart: no JVD
Ext: (-) Clubbing, (-) Cyanosis, (-) Edema
IMPRESSIONS/RECOMMENDATIONS:
Abrupt onset of painless visual loss in the right similar but not identical to event in 2020
? Non-arteritic ischemic optic neuropathy
Check MRI of brain which may need to be done as outpatient as patient should not miss ophthalmology outpatient evaluation
continue ASA and newly initiated clopidogrel
Clopidogrel 75 mg for 21 days then discontinue
Ophthalmology evaluation
Ezetimibe for cholesterol, follow LDL
Will continue to follow as needed.
Original Note:
Today's Communication / Plan
-
Impressions: Abrupt onset of painless visual loss in the right eye similar but not identical to event in 2019, possible non-arteritic ischemic optic neuropathy vs retinal artery occlusion
-continue clopidogrel 75 mg daily in addition to aspirin 81 mg daily for 21 days followed by monotherapy with aspirin 81 mg daily, will check labs to ensure he is aspirin responder and if not switch to monotherapy with clopidogrel
-check brain MRI
-current LDL 166 with goal <70 unable to tolerate statins continue ezetimibe 10 mg nightly, will need to recheck lipid levels outpatient in about 3 months
-follow up with ophthalmology
All questions encouraged and answered, plan of care discussed with Dr. Townsend, hospitalist, patient
Neuro Assessment/Plan
Assessment
The patient is a right-handed 64-year-old with a past medical history for hypertension, hyperlipidemia, diabetes presented to [facility] on 05/07/2025 with painless blurry vision to right eye.
Head CT 05/07/2025: No acute intracranial abnormality noted.
Brain MRI 12/07/2019:
1. No MRI evidence for acute infarct or intracranial hemorrhage.
2. Mild symmetric bilateral frontal lobe volume loss.
3. Mild paranasal sinus mucosal disease.
Head and neck CTA 12/06/2019:
Patent ophthalmic arteries.
Unremarkable [place] of [place] region.
Widely patent internal carotid arteries.
Unremarkable vertebral basilar system.
Labs: Hgb A1C 5.9, ESR 2, Cholesterol 240, LDL 166
Plan
Impressions: Abrupt onset of painless visual loss in the right eye similar but not identical to event in 2019, possible non-arteritic ischemic optic neuropathy vs retinal artery occlusion
-continue clopidogrel 75 mg daily in addition to aspirin 81 mg daily for 21 days followed by monotherapy with aspirin 81 mg daily, will check labs to ensure he is aspirin responder and if not switch to monotherapy with clopidogrel
-check brain MRI
-current LDL 166 with goal <70 unable to tolerate statins continue ezetimibe 10 mg nightly, will need to recheck lipid levels outpatient in about 3 months
-follow up with ophthalmology
All questions encouraged and answered, plan of care discussed with Dr. Townsend, hospitalist, patient
Subjective/Objective
Subjective Data
Date of Service: May 08, 2025
No acute events overnight. Vision back to normal yesterday afternoon by 1630. Denies headache, denies dizziness, denies pain.
Objective Data
Vital Signs
Temp Pulse Resp BP Pulse Ox
98.0 F 56 18 126/81 98
05/08/25 07:01 05/08/25 07:01 05/08/25 07:01 05/08/25 04:16 05/08/25 07:01
Lab Results
05/07/25 11:56
05/07/25 11:56
Sodium 137 mmol/L (135-145) 05/07/25 11:56
Potassium 4.7 mmol/L (3.5-5.1) 05/07/25 11:56
BUN 24 mg/dl (9-20) H 05/07/25 11:56
Glucose 109 mg/dl (70-99) H 05/07/25 11:56
Calcium 9.3 mg/dl (8.4-10.2) 05/07/25 11:56
LDL Cholesterol, Calc 147 mg/dl 05/08/25 04:29
Patient Allergies
chicken derived Allergy (Verified 05/10/24 08:55)
Itching
Physical Exam
-
General: No Apparent Distress, Comfortable and Appears Stated Age
HEENT: Normocephalic, Atraumatic and Anicteric
Neck: Full Range of Motion
Cardiac: No JVD
GI: Non-distended
Skin: Unremarkable
Extremities: No Clubbing, No Cyanosis and No Edema
Psych: Unremarkable
Extended Neurological Exam
Mood & Affect: Mood Unremarkable
Attention Span & Concentration: Awake, Alert, Interactive and No Difficulty with 2 Step Request
Memory: Unremarkable
Tremor: Hand Tremor Absent and Head Tremor Absent
Involuntary Movement: None
Speech: Quality Unremarkable, Quantity Unremarkable and Rate of Production Unremarkable
Cranial Nerve II: Left Eye: Visual Hinojosa Grossly Intact
Cranial Nerve II: Right Eye: Visual Hinojosa Grossly Intact
Cranial Nerves III, IV, : Extraocular Movement: Extraocular Movement Full in all Directions
Cranial Nerve VII: Facial Symmetry: Normal Facial Symmetry
Cranial Nerve VIII: Hearing: Unremarkable Hearing to Normal Conversational Volume
Cranial Nerves IX, X: Palate Movement: Palate Elevation Symmetric
Cranial Nerve XII: Tongue Protusion: Midline
Muscle Strength, Overall: Full Throughout
Muscle Bulk & Tone: Bulk Unremarkable and Tone Unremarkable
Pronator Drift: No Drift in Upper Extremities and No Drift in Lower Extremities
Deep Tendon Reflexes: Unremarkable Throughout
Coordination: Idppiz-ejnt-skyxla Testing Unremarkable and Reaches for Objects without Difficulty
[2025-05-08] MEDS: ASPIR LOW (ENTERIC COATED) 81 MG PO (08:49)
[2025-05-08] MEDS: ZESTRIL 40 MG PO (08:50)
[2025-05-08] MEDS: PLAVIX 75 MG PO (08:50)
--- NOTE | 2025-05-08 10:54 | CM ---
Reviewed chart. Met [facility] and Mrs. Do to review discharge plans. He states he is feeling well and waiting MRI. He states prior to admission he resides with his spouse in a two story home with seven steps to enter. He states he has a full
flight of steps to get to bedroom/full bathroom. He states he has a powder room on the first floor. He states prior to admission he was independent with ambulations and adls. He states he does not have any DME in the home. He states he has a
prescription plan and uses [facility]. The discharge plan is to return home with his spouse when medically stable.
--- NOTE | 2025-05-08 11:39 | PTCARENOTE ---
Pt ambulating in room ,denies symptoms, offers no complaints
[2025-05-08 11:52] LABS: Glucose - Point of Care 126 mg/dl (70-99)
[2025-05-08 14:11] LABS: VerifyNow Aspirin 447 ARU
--- NOTE | 2025-05-08 18:15 | W.PN.HOSP.TC ---
Addendum entered and electronically signed by Raul Finnegan MD 05/09/25 15:35:
Attending Addendum-
I saw and evaluated the patient. I reviewed the resident�s note and agree with findings and plan as documented in the resident�s note. Sub: Seen with present. No complaints. No vision changes or neuro sxs. Wants to go home. Full 12 point ROS
reviewed and negative except as documented Exam: Vitals reviewed in chart GEN-NAD heart RRR lungs clear abd soft LE no edema NEruo AAO x 3 MS 5/ no cerebellar deficits EOMI no vision changes
# Right Eye blurry Vision
-head CT with no acute intracranial abnormality noted
- Obtain MRI-neg for acute CVA
- Plavix and asa x 21 days then ASA
- Zetia continued
#hxt of amaurosis fugax
#essential HTN
- Benazepril continued
#HLD
- Zetia continued
# Type 2 diabetes
-resume metformin on DC
-Sliding scale
-CHO diet
# DVT prophylaxis
-SCDs
# CODE STATUS
-Full code
Time spent coordinating care, DC planning, review of DC plan of care with resident, transition of care, review of records, med rec/scripts sent electronically, consults, notes, d/w consultants, nursing, family, and CM� mins >50% of this time was
devoted to counseling and coordination of care
Original Note:
Today's Communication/Plan
-
Continue new antiplatelet therapy with aspirin and clopidogrel. Continue antihyperlipidemic therapy with ezetimibe.
Monitor clinical status.
Plan to discharge to home later today.
Assessment / Plan
Assessment / Plan
#Acute cloudy vision w/ bilateral paresthesias
- Etiology undetermined
- AFVSS, no leukocytosis
- CT head: NAIA
- Brain MRI: NAIA
- CTA head/neck: No significant narrowings
- NIHSS every 4 hours have been 0 during hospital stay
- Per neuro, the following medication regimen has been started:
- Aspirin 81 mg p.o. daily
- Clopidogrel 75 mg p.o. daily
- Lab work suggests patient is responding appropriately to aspirin therapy
- This regimen will be followed for 21 days, followed by aspirin monotherapy thereafter
-Follow-up outpatient with ophthalmology
#Hyperlipidemia
� Patient reports he stopped statin 6 weeks ago due to muscle cramps
- LDL 166 during this hospital course
- Per neuro, start ezetimibe w/ LDL goal less than 70
- Consider restarting a different statin or lower dose
#Hypertension
� C/W lisinopril
#Type 2 diabetes
� Hold metformin during hospital course
DVT PPx: SCDs
Anticipated Discharge: Today
Subjective/Interval History
-
Date of Service: May 08, 2025
Patient seen at the bedside on hospital day #2. Nursing reports NAEO. Patient is feeling well. No current complaints or deficits.
Objective Data
-
Vital Signs:
Vital Signs
Temp Pulse Resp BP Pulse Ox
97.6 F 54 16 139/89 98
05/08/25 15:49 05/08/25 16:00 05/08/25 15:49 05/08/25 15:48 05/08/25 15:49
I&O
05/07/25 05/08/25 05/09/25
06:59 06:59 06:59
Intake Total 480 / 480
Balance 480 / 480
Review of Systems
-
Constitutional: Denies Fever, Fatigue or Chills
Respiratory: Denies Trouble Breathing
Cardiac: Denies Chest Pain
Abdomen/GI: Denies Abdominal Pain, Nausea, Vomiting or Diarrhea
Musculoskeletal: Reports No Symptoms
Neuro: Denies Headache, Weakness, Numbness or Other (Denies any vision changes or deficits today)
Physical Exam
-
General: No Apparent Distress and Comfortable
HEENT: Normocephalic and Atraumatic
Respiratory: Clear to Auscultation and Non Labored Respirations; Negative Wheezes or Crackles
Cardiac: Regular Rhythm and S1/S2; Negative Murmur, Rub or Gallop
GI: Soft, Nontender and Normal Bowel Sounds
Musculoskeletal: No Edema
Skin: Warm and Dry
Neuro: AO x 3, No Motor Deficits, Central Nerve's Intact, No Sensory Deficits and Other (EOMI; visual perdomo intact); Negative Facial Droop
Psych: Calm
--- NOTE | 2025-05-08 20:39 | W.DCSUMMARY ---
Addendum entered and electronically signed by Raul Finnegan MD 05/09/25 23:31:
Read, reviewed, and agree. See same day progress note for additional details.
Hernan Finnegan MD
Original Note:
Documented by User: Jeanmarie Mckeon MD, Resident 05/09/25 19:30
Discharge Summary
Discharge Data
Date of Admission: 05/07/25
Date of Discharge: 05/08/25
-
Pending Results: No
Hospital Course
Discharging Physician : Jeanmarie Mckeon MD; Raul Finnegan MD
Disposition : Home
Primary care physician : � � �Jeanmarie Tracy
Principal Discharge diagnosis : Acute monocular blurry vision
Chronic Discharge diagnosis : Essential hypertension; hyperlipidemia; type 2 diabetes
Hospital Course : Patient presented to the [facility] emergency department with monocular, right-sided blurry vision. The episode began upon waking in the morning on the day of presentation and was associated with bilateral upper extremity
paresthesias. The paresthesias resolved upon taking a shower in the morning, but the blurry vision persisted until approximately 4:30 PM the same day. The patient underwent a CT head, brain MRI, and CTA head/neck, which did not reveal an etiology
of the episode. Patient underwent regular neurochecks, with no abnormal findings while in the hospital. The patient was seen by neurology, which recommended dual antiplatelet therapy with aspirin 81 mg p.o. daily and clopidogrel 75 mg p.o. daily.
This regimen will be followed for total of 21 days, followed by aspirin monotherapy thereafter. Patient's LDL was found to be 166 during this hospital course. Accordingly, neurology also recommended treatment with ezetimibe 10 mg p.o. at bedtime
with an LDL goal of less than 70. Patient reports that he has regularly followed with ophthalmology since an episode of amaurosis fugax in 2019. Outpatient follow-up with ophthalmology is recommended.
The patient's chronic conditions were managed as follows:
#Essential hypertension: Managed with lisinopril. Patient remained clinically stable.
#Hyperlipidemia: Patient was started on ezetimibe 10 mg, as he described statin induced muscle spasms within the past year. Patient reported that he stopped his statin 6 weeks prior to presentation due to these muscle spasms.
#Type 2 diabetes: Patient's metformin was held during the hospital course, but will be continued upon discharge. Patient was managed with a controlled carbohydrate diet.
Important imaging findings : �
Head CT - IMPRESSION: No acute intracranial abnormality noted.
CTA Head/Neck - IMPRESSION:
1. There is no significant calcification or atherosclerotic disease of the vasculature within the head and neck.
2. There is no evidence for significant narrowing involving the common carotid arteries, carotid bulbs, or proximal internal carotid arteries bilaterally.
3. No significant narrowing involving the cervical or intracranial portions of the internal carotid arteries. No significant narrowing involving the anterior cerebral or middle cerebral arteries bilaterally.
4. No significant narrowing involving the vertebral and basilar arteries. No significant narrowing seen involving the posterior cerebral arteries.
Brain MRI - IMPRESSION: No acute intracranial abnormality noted.
Procedure findings : N/A
Discharge Plan
-
Patient Disposition: Home (Routine Discharge)
Discharge Diagnosis/Procedures: Amaurosis Fugax, TIA
Condition: Good
Diet: Low Cholesterol
Activity: No restrictions
Driving Restrictions: As prior to admission
Referrals:
Jeanmarie Tracy MD [Family Provider, [facility]]
Additional Discharge Medication Instructions: Follow up with [facility] Finished outpatient for Amaurosis Fugax of R eye
Follow up with PCP as outpatient for Lipid Panel; consider restarting statin with different agent or alternative dosing pattern (every other day or half dosing) for ideal Lipid control in patient with h/o myopathy.
Continue with Plavix 75mg for 19 more days, for a total of 21 days. Continue with aspirin 81mg once daily.
Prescriptions:
New
clopidogrel 75 mg Tablet
75 mg PO DAILY 19 Days Qty: 19 0RF
ezetimibe 10 mg Tablet
10 mg PO HS 90 Days Qty: 90 0RF
Continued
metformin 500 mg Tablet
500 mg PO QPM
aspirin 81 mg Tablet,Delayed Release (Dr/Ec)
81 mg PO DAILY
benazepril 40 mg Tablet
40 mg PO DAILY
vitamin E 268 mg (400 unit) Capsule
268 mg PO DAILY
cholecalciferol (vitamin D3) [Vitamin D3] 25 mcg (1,000 unit) Tablet
25 mcg PO DAILY
glycine 500 mg Capsule
500 mg PO DAILY
omega [id number]-fish oil [Fish Oil] 1,000 (120-180) mg Capsule
1 cap PO DAILY
coQ10 (ubiquinol) 100 mg Capsule
100 mg PO DAILY
turmeric 400 mg Capsule
400 mg PO DAILY
vitamin D3-vitamin K2 125-90 mcg Capsule
1 cap PO DAILY
ashwagandha extract 120 mg Capsule
120 mg PO DAILY
berberine chloride 500 mg Capsule
500 mg PO DAILY
Super Beets
2 cap PO DAILY
Discharge Orders:
Discharge Patient (As Directed); Ordered 05/08/25
Ordered By: Francis Narayan
Care Plan Goals
Care Plan Goals:
Problem: Readiness for enhanced knowledge related to diagnosis and treatment plan
Goal: Understand your diagnosis and treatment plan needs, including medications if applicable.
Instructions: Know your diagnosis, underlying causes and treatment plan options, including medications if applicable. Consult with your health care team to learn about your diagnosis and treatment plan, including medications if applicable.
Discharge Date and Time
Discharge Date/Time: 05/08/25 17:42
Print Language: VINCENTIAN

Documented by User: Raul Finnegan MD 05/09/25 23:31
Discharge Summary
Discharge Data
Date of Admission: 05/07/25
Date of Discharge: 05/09/25
Discharge Plan
-
Patient Disposition: Home (Routine Discharge)
Discharge Diagnosis/Procedures: Amaurosis Fugax, TIA
Condition: Good
Diet: Low Cholesterol
Activity: No restrictions
Driving Restrictions: As prior to admission
Referrals:
Jeanmarie Tracy MD [Family Provider, [facility]]
Additional Discharge Medication Instructions: Follow up with [facility] Finished outpatient for Amaurosis Fugax of R eye
Follow up with PCP as outpatient for Lipid Panel; consider restarting statin with different agent or alternative dosing pattern (every other day or half dosing) for ideal Lipid control in patient with h/o myopathy.
Continue with Plavix 75mg for 19 more days, for a total of 21 days. Continue with aspirin 81mg once daily.
Prescriptions:
New
clopidogrel 75 mg Tablet
75 mg PO DAILY 19 Days Qty: 19 0RF
ezetimibe 10 mg Tablet
10 mg PO HS 90 Days Qty: 90 0RF
Continued
metformin 500 mg Tablet
500 mg PO QPM
aspirin 81 mg Tablet,Delayed Release (Dr/Ec)
81 mg PO DAILY
benazepril 40 mg Tablet
40 mg PO DAILY
vitamin E 268 mg (400 unit) Capsule
268 mg PO DAILY
cholecalciferol (vitamin D3) [Vitamin D3] 25 mcg (1,000 unit) Tablet
25 mcg PO DAILY
glycine 500 mg Capsule
500 mg PO DAILY
omega 7-nhc-lxb-fish oil [Fish Oil] 1,000 (120-180) mg Capsule
1 cap PO DAILY
coQ10 (ubiquinol) 100 mg Capsule
100 mg PO DAILY
turmeric 400 mg Capsule
400 mg PO DAILY
vitamin D3-vitamin K2 125-90 mcg Capsule
1 cap PO DAILY
ashwagandha extract 120 mg Capsule
120 mg PO DAILY
berberine chloride 500 mg Capsule
500 mg PO DAILY
Super Beets
2 cap PO DAILY
Discharge Orders:
Discharge Patient (As Directed); Ordered 05/08/25
Ordered By: Francis Narayan
Care Plan Goals
Care Plan Goals:
Problem: Readiness for enhanced knowledge related to diagnosis and treatment plan
Goal: Understand your diagnosis and treatment plan needs, including medications if applicable.
Instructions: Know your diagnosis, underlying causes and treatment plan options, including medications if applicable. Consult with your health care team to learn about your diagnosis and treatment plan, including medications if applicable.
Discharge Date and Time
Discharge Date/Time: 05/08/25 17:42
Print Language: VINCENTIAN
== END 2025-05-08 17:42 | disposition home or self-care (01) ==
LOC: IVU 15:58
PROVIDERS: Emergency Medicine; Nurse Practitioner; Registered Nurse; ADMITTING PHYSICIAN Internal Medicine; ATTENDING PHYSICIAN Family Medicine; CONSULT PHYSICIAN Psychiatry & Neurology Neurology; EMERGENCY PHYSICIAN Emergency Medicine; FAMILY PHYSICIAN Family Medicine
DX: H53.8 Other visual disturbances (principal); E78.00 Pure hypercholesterolemia, unspecified; I10 Essential (primary) hypertension; E11.9 Type 2 diabetes mellitus without complications; R20.0 Anesthesia of skin; Z79.82 Long term (current) use of aspirin; Z79.84 Long term (current) use of oral hypoglycemic drugs; Z79.899 Other long term (current) drug therapy; Z82.3 Family history of stroke; Z82.49 Family history of ischemic heart disease and other diseases of the circulatory system
CPT/HCPCS: 70450; 70496; 70498; 70551; 80053; 80061; 82962; 83036; 85025; 85576; 85652; 97166; 99285; G0378; Q9967

== ENCOUNTER → 2025-05-25 10:06 | Outpatient (REF) | payer MEDICARE, SELFPAY | LOC: HWRCS 10:06 | PROVIDERS: ATTENDING PHYSICIAN Physician Assistant; FAMILY PHYSICIAN Chiropractor | DX: R94.31 Abnormal electrocardiogram [ECG] [EKG] (principal); I10 Essential (primary) hypertension; R06.09 Other forms of dyspnea; I51.7 Cardiomegaly | CPT/HCPCS: 93306 ==

== ENCOUNTER → 2025-05-29 13:36 | Outpatient (REF) | payer MEDICARE, SELFPAY | LOC: RCS 13:36 | PROVIDERS: ATTENDING PHYSICIAN Physician Assistant; FAMILY PHYSICIAN Family Medicine | DX: R94.31 Abnormal electrocardiogram [ECG] [EKG] (principal); R06.09 Other forms of dyspnea; I10 Essential (primary) hypertension | CPT/HCPCS: 93017; 93350 ==

== ENCOUNTER → 2025-06-22 08:04 | Outpatient (REF) | payer MEDICARE, SELFPAY ==
[2025-06-22 09:45] LABS: ALT (SGPT) 32 U/L (0-50); AST (SGOT) 23 U/L (17-59); Albumin 4.9 g/dl (3.5-5.0); Alkaline Phosphatase 47 U/L (38-126); Blood Urea Nitrogen 21 mg/dl (9-20); Calcium 10.1 mg/dl (8.4-10.2); Carbon Dioxide 27 mmol/L (22-30); Chloride 105 mmol/L (98-107); Glucose 125 mg/dl (70-99); HDL Cholesterol 48 mg/dl; LDL Cholesterol, Calculated 117 mg/dl; Potassium 5.3 mmol/L (3.5-5.1); Sodium 139 mmol/L (135-145); Total Protein 7.6 g/dl (6.3-8.2); Very Low Density Lipoprotein 15 mg/dl (0-30); eGFR > 60.00
[2025-06-22 10:06] LABS: PSA, Total - Screen 1.51 ng/ml (0.0-4.0)
== END ==
LOC: RAD 08:04
PROVIDERS: ATTENDING PHYSICIAN Urology; FAMILY PHYSICIAN Family Medicine; REFERRING PHYSICIAN Physician Assistant
DX: R31.0 Gross hematuria (principal); R94.31 Abnormal electrocardiogram [ECG] [EKG]; E78.2 Mixed hyperlipidemia; Z12.5 Encounter for screening for malignant neoplasm of prostate; E11.9 Type 2 diabetes mellitus without complications
CPT/HCPCS: 36415; 74178; 80053; 80061; G0103; Q9967

== ENCOUNTER → 2025-07-06 12:33 | Outpatient (REF) | payer MEDICARE, SELFPAY ==
[2025-07-06 14:33] LABS: Urine Character Clear (Clear)
== END ==
LOC: SDSPAT 12:33
PROVIDERS: ATTENDING PHYSICIAN Urology; FAMILY PHYSICIAN Family Medicine
DX: N20.1 Calculus of ureter (principal); Z01.818 Encounter for other preprocedural examination
CPT/HCPCS: 36415; 81003; 93005

== ENCOUNTER 2025-07-10 06:20 | Day surgery (SDC) | payer MEDICARE, SELFPAY ==
[2025-07-06 13:59] VITALS: BMI 30.2
[2025-07-10] VITALS (9 sets, daily range): BP systolic 131–152; BP diastolic 68–92
[2025-07-10 07:53] LABS: Glucose - Point of Care 138 mg/dl (70-99)
[2025-07-10 10:03] LABS: Glucose - Point of Care 130 mg/dl (70-99)
[2025-07-10] MEDS: ZOFRAN 4 MG IV (10:08)
[2025-07-10] MEDS: COMPAZINE 5 MG IV (10:35)
== END 2025-07-10 11:52 | disposition home or self-care (01) ==
LOC: SDS 06:20
PROVIDERS: ATTENDING PHYSICIAN Urology
DX: N20.1 Calculus of ureter (principal)
CPT/HCPCS: 52353; 82365; 82962

== ENCOUNTER → 2025-08-28 09:15 | Outpatient (REF) | payer MEDICARE, SELFPAY ==
[2025-08-28 11:13] LABS: Glycohemoglobin (HgbA1c) 6.0 % (4.0-5.9)
[2025-08-28 11:20] LABS: ALT (SGPT) 31 U/L (0-50); AST (SGOT) 25 U/L (17-59); Albumin 4.8 g/dl (3.5-5.0); Alkaline Phosphatase 50 U/L (38-126); Blood Urea Nitrogen 17 mg/dl (9-20); Calcium 9.3 mg/dl (8.4-10.2); Carbon Dioxide 28 mmol/L (22-30); Chloride 103 mmol/L (98-107); Glucose 117 mg/dl (70-99); Potassium 4.6 mmol/L (3.5-5.1); Sodium 139 mmol/L (135-145); Total Protein 7.3 g/dl (6.3-8.2); eGFR > 60.00
== END ==
LOC: REG 09:15
PROVIDERS: ATTENDING PHYSICIAN Family Medicine
DX: R35.0 Frequency of micturition (principal); E11.9 Type 2 diabetes mellitus without complications; E78.2 Mixed hyperlipidemia; I10 Essential (primary) hypertension
CPT/HCPCS: 36415; 80053; 83036